=== PATIENT | male | born 1950 | race Caucasian/White ===

== ENCOUNTER 2017-04-10 21:59 | Inpatient (IN) | payer BC ==
[2017-04-10 22:30] LABS: BASO % 1.1 % (0-2.0); EOS % 2.2 % (0-4.5); HEMATOCRIT 35.5 % (35.4-49); HEMOGLOBIN 11.3 GM/dL (11.7-16.9); LYMPH % 27.1 % (8-40); MCHC 31.7 g/dl (32.0-35.9); MEAN CELL VOLUME 60.2 fl (80-96); MEAN PLT VOLUME 8.4 fl (7.5-11.1); MONO % 7.5 % (3.8-10.2); NEUT % 62.1 % (42.8-82.8); PLATELET COUNT 283 K/MM3 (134-434); RDW 15.7 % (11.9-15.9); WHITE BLOOD COUNT 6.2 K/mm3 (4.0-10.0)
[2017-04-10 22:31] LABS: ADD RBC MORPHOLOGY YES; MCH 19.1 pg (25.7-33.7)
--- NOTE | 2017-04-10 22:32 | PDOC ---
Attending Attestation - Resident Resident Name: Dimitri Adams - ED Attending Attestation I have performed the following: I have examined & evaluated the patient, The case was reviewed & discussed with the resident, I agree w/resident's findings & plan, Exceptions are as noted - HPI HPI: 04/10/17 22:40 right side facial droop and right upper and lower extremity weakness. Symptoms started at 7:30 pm today. - Physicial Exam PE: 04/10/17 22:42 Physical Exam General Appearance: Yes: Appropriately Dressed. No: Apparent Distress, Intoxicated HEENT: positive: EOMI, MUSA, Normal ENT Inspection, Normal Voice, TMs Normal, Pharynx Normal. negative: Pale Conjunctivae, Photophobia, Scleral Icterus (R), Scleral Icterus (L) Neck: positive: Trachea midline, Normal Thyroid, Supple. negative: Tender, Rigid, Carotid bruit, Stridor, Lymphadenopathy (R), Lymphadenopathy (L), Thyromegaly Respiratory/Chest: positive: Lungs Clear, Normal Breath Sounds. negative: Chest Tender, Respiratory Distress, Accessory Muscle Use, Labored Respiration, RES, Crackles, Rales, Rhonchi, Stridor, Wheezing, Dullness Cardiovascular: positive: Regular Rhythm, Regular Rate, S1, S2. negative: Edema , JVD, Murmur, Bradycardia, Tachycardia Vascular Pulses: Dorsalis-Pedis (R): 2+, Doralis-Pedis (L): 2+ Gastrointestinal/Abdominal: positive: Normal Bowel Sounds, Flat, Soft. negative : Tender, Organomegaly, Pulsatile Mass, Increased Bowel Sounds, Decreased BS, Distended, Guarding, Rebound, Hernia, Hepatomegaly, Spleenomegaly Lymphatic: negative: Adenopathy, Tenderness Musculoskeletal: positive: Normal Inspection. negative: CVA Tenderness, Decreased Range of Motion Extremity: positive: Normal Capillary Refill, Normal Inspection, Normal Range of Motion, Pelvis Stable. negative: Tender, Pedal Edema, Swelling, Erythema Integumentary: positive: Normal Color, Dry, Warm. 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 negative: EOM Palsy, Sensory Deficit - Medical Decision Making 04/10/17 23:12 Pt stroke scale started at 11. Went down to 2, then return to 7. Pt started om TPA.
[2017-04-10 22:43] LABS: INR 1.06 (0.82-1.09)
[2017-04-10] MEDS ORDERED: ALTEPLASE 100MG 100 MG IVPB ONE (22:52)
[2017-04-10 22:53] LABS: ALBUMIN 3.7 g/dl (3.4-5.0); ANION GAP 10 (8-16); BLOOD UREA NITROGEN 22 mg/dL (7-18); CALCIUM 9.2 mg/dL (8.5-10.1); CHLORIDE 96 mmol/L (98-107); CHOLESTEROL 239 mg/dL (50-200); CO2 29 mmol/L (21-32); CREATININE 0.9 mg/dL (0.7-1.3); GLUCOSE,RANDOM 239 mg/dL (74-106); POTASSIUM 3.9 mmol/L (3.5-5.1); SGOT/AST 18 U/L (15-37); SGPT/ALT 40 U/L (12-78); SODIUM 135 mmol/L (136-145); TRIGLYCERIDES 338 mg/dL (35-160)
[2017-04-10 22:55] LABS: ALK PHOS 77 U/L (45-117); BILIRUBIN,TOTAL 0.5 mg/dL (0.2-1.0); HDL CHOLESTEROL 37 mg/dL (40-60); LDL CHOLESTEROL (ONLY SJRH) 148 mg/dL (5-100); TOT PROT 7.1 g/dl (6.4-8.2)
[2017-04-10 23:11] LABS: ANISOCYTOSIS 1+; OVALOCYTE 1+; PLATELET ESTIMATE ADEQUATE; TARGET CELLS 1+
[2017-04-10] MEDS ORDERED: ALTEPLASE 50 MG VIAL IVPB ONE (23:14)
[2017-04-10 23:27] LABS: URINE APPEARANCE CLEAR; URINE BILIRUBIN NEGATIVE (NEGATIVE); URINE BLOOD NEGATIVE (NEGATIVE); URINE COLOR LTYELLOW; URINE GLUCOSE (UA) 3+ (NEGATIVE); URINE KETONE TRACE (NEGATIVE); URINE LEUK ESTERASE NEGATIVE (NEGATIVE); URINE NITRITE NEGATIVE (NEGATIVE); URINE UROBILINOGEN NEGATIVE mg/dL (0.2-1.0)
[2017-04-10 23:35] LABS: URINE PROTEIN 1+ (NEGATIVE)
--- NOTE | 2017-04-10 23:35 | PDOC ---
History of Present Illness - General Chief Complaint: CVA/TIA Stated Complaint: STROKE Time Seen by Provider: 04/10/17 22:01 History Source: Patient Exam Limitations: No Limitations - History of Present Illness Initial Comments: 04/10/17 23:30 Patient is a 66M with history of HTN and DM here today complaining of right sided facial droop and right sided weakness. Last known well, per patient's , was 19:30 today. Patient denies history of ICH, GI bleed, neurosurgery, or other bleeding abnormality. Patient denies chest pain, shortness of breath. He endorses an associated headache that has been bothering him for the past several days. Denies taking any anticoagulation. Past History - Past Medical History Allergies/Adverse Reactions: Allergies Allergy/AdvReac Type Severity Reaction Status Date / Time No Known Allergies Allergy Verified 04/10/17 22:00 Home Medications: Ambulatory Orders Finasteride [Proscar] 5 mg PO DAILY 04/10/17 Glipizide [Glucotrol -] 10 mg PO BID 04/10/17 Losartan/Hydrochlorothiazide [Losartan-Hctz 100-12.5 mg Tab] 1 each PO DAILY 05/27 Metformin HCl [Metformin HCl ER] 1,000 mg PO BID 04/10/17 Tamsulosin HCl [Flomax -] 0.4 mg PO BID 04/10/17 COPD: No Diabetes: Yes (2) Disorders: Yes (enlarged prostate) HTN: Yes - Suicide/Smoking/Psychosocial Hx Smoking History: Current some day smoker Number of Cigarettes Smoked Daily: 5 Information on smoking cessation initiated: No Hx Alcohol Use: No Drug/Substance Use Hx: No Review of Systems - Review of Systems Comments:: 04/10/17 23:35 GENERAL/CONSTITUTIONAL: No fever or chills. HEAD, EYES, EARS, NOSE AND THROAT: No change in vision. No sore throat. CARDIOVASCULAR: No chest pain or shortness of breath RESPIRATORY: No cough, wheezing, or hemoptysis. GASTROINTESTINAL: No nausea, vomiting, diarrhea or constipation. GENITOURINARY: No dysuria, frequency, or change in urination. MUSCULOSKELETAL: No joint or muscle swelling or pain. No neck or back pain. SKIN: No rash NEUROLOGIC: Positive for headache. Negative for vertigo, loss of consciousness, or change in strength/sensation. HEMATOLOGIC/LYMPHATIC: No anemia, easy bleeding, or history of blood clots. ALLERGIC/IMMUNOLOGIC: No hives or skin allergy. *Physical Exam - Vital Signs Last Vital Signs Temp Pulse Resp BP Pulse Ox 98.7 F 81 19 133/103 100 04/10/17 22:58 04/10/17 22:25 04/10/17 22:58 04/10/17 22:58 04/10/17 22:58 - Physical Exam Comments: 04/10/17 23:36 GENERAL: Awake, alert, and fully oriented, facial droop HEAD: No signs of trauma, normocephalic, atraumatic EYES: PERRLA, EOMI, left gaze palsy, sclera anicteric, conjunctiva clear ENT: Auricles normal inspection, hearing grossly normal, nares patent, oropharynx clear without exudates. Moist mucosa LUNGS: No distress, speaks full sentences, clear to auscultation bilaterally HEART: Regular rate and rhythm, normal S1 and S2, no murmurs, rubs or gallops, peripheral pulses normal and equal bilaterally. EXTREMITIES: Normal inspection, Normal range of motion, no edema. No clubbing or cyanosis. NEUROLOGICAL: Right sided facial droop, left eye palsy, right arm weakness, right leg weakness, right leg numbness. Slurred speech, difficultly finding words. SKIN: Warm, Dry, normal turgor, no rashes or lesions noted. NIH Stroke Scale - Last Known Well Date/Time & Onset Date Last Known Well: 04/10/17 Time Last Known Well: 19:30 - Initial Evaluation Level of consciousness: Alert Ask patient the month and their age: Answers both correctly Ask patient to open & close eyes; make fist and let go: Obeys both correctly Best gaze (horizontal eye movement): Partial gaze palsy Visual field testing: No visual field loss Facial paresis (Show teeth/raise eyebrows/close eyes tight): Partial paralysis ( total or near paralysis of lower face) Motor Function: Left Arm: Normal Motor Function: Right Arm: No effort against gravity Motor Function: Left Leg: Normal (extends leg 30 degrees for 5 seconds without drift) Motor Function: Right Leg: Drift Limb Ataxia: Present in two limbs Sensory(Use pinprick test arms,legs,trunk,face/side to side): Normal Best language (Describe picture, name items, read sentences): Mild to moderate aphasia Dysarthria (read several words): Mild to moderate slurring of words Extinction and Inattention: No abnormality - Total Score NIH Stroke Scale Score: 11 tPA Exclusion Checklist 0-3hr - Thrombolytic Therapy Candidate Is the patient eligible for Thrombolytic Therapy?: Yes - Exclusion Criteria 0-3hr SBP greater than 185 or DBP greater than 110mmHg despite tx: No Recent IC/spinal surgery,head trauma or stroke w/in last 3mo: No Hx of previous IC hemorrhage, IC neoplasm, AVM or aneurysm: No Active internal bleeding: No Blding diathesis(low plt ct, inc PTT,INR>1.7 or use of NOAC): No Symptoms suggest subarachnoid hemorrhage: No CT demonstrates multilobar infarct(>1/3 cerebral hemiphere): No Arterial puncture at noncompressible site in previous 7 days: No Blood glucose concentration less than 50mg/dL (2.7mmol/L): No - Relative Exclusion Criteria 0-3h Life expectancy <1yr/severe co-morbid illness/[employer] on admit: No : No Patient/family refused: No Rapid improvement: No Stroke severity too mild: No Recent acute NH (w/in previous 3 months): No Seizure at onset with postictal residual neuro impairments: No Major surgery or serious trauma w/in previous 14 days: No Recent GI or hemorrhage (w/in previous 21 days): No tPA Exclusion checklist 3-4.5h - Thrombolytic Therapy Candidate Is patient eligible for thrombolytic therapy: Yes - Exclusion Criteria 3-4.5 hr SBP greater than 185 or DBP greater than 110mmHg despite tx: No Recent IC/spinal surgery,head trauma or stroke<3mos.: No Hx IC hemorrhage, IC neoplasm, AV malformation or aneurysm: No Active internal bleeding: No Blding diathesis(low plt ct, inc PTT,INR>1.7 or use of NOAC): No Symptoms suggest subarachnoid hemorrhage: No CT demonstrates multilobar infarct(>1/3 cerebral hemiphere): No Arterial puncture at noncompressible site in previous 7 days: No Blood glucose concentration less than 50mg/dL (2.7mmol/L): No - Relative Exclusion Criteria 3-4.5 hr Life expectancy <1 yr or severe co-morbid illness: No : No Patient/family refused: No Rapid improvement: No Stroke severity too mild: No Recent acute NH (w/in previous 3 months): No Seizure at onset with postictal residual neuro impairments: No Major surgery or serious trauma w/in previous 14 days: No Recent GI or hemorrhage (w/in previous 21 days): No - Add'l Relative Exclusion 3-4.5 hr Age > 80: No Hx of both diabetes AND prior ischemic stroke: No Taking an oral anticoagulant regardless of INR: No NIHSS >25: No Critical Care Time/MDM Note Total Critical Care Time: 30 Critical Care Statement: The care of this patient involved high complexity decision making to prevent further life threatening deterioration of the patient 's condition and/or to evaluate & treat vital organ system(s) failure or risk of failure. - Medical Decision Making Note: 04/10/17 23:41 Patient is a 66M with history of HTN, and DM here today with stroke. Last known well at 7:30pm. Initial rapid evaluation: A- protecting airway B- equal breath sounds C- equal pulses in upper extremity, IV established by EMS D- Right sided facial droop Patient taken to CT scan. My wet read showed no hemorrhage. Radiology read confirms. Taken to room 10. Second IV placed, labs drawn. Initial stroke scale completed as in note - 11. Aspirin given. Neurology consulted 22:32, call back at 22:35, patient's right arm and leg weakness rapidly improved. Dr Oliva consulted, advised of improvement. Recommended tPA if patient's symptoms had not resolved entirely due to risk of worsening of symptoms. Repeat stroke scale 7 (1 gaze palsy, 1 right arm drift, 1 right leg drift, 1 limb ataxia, 1 sensory numbness, 1 for best language, 1 for dysarthria). tPA ordered for 73mg to be given as 8.3mg bolus with the remaining dripped in over one hour. After administration of tPA, patient's right arm weakness returned. 04/10/17 23:54 Kun accepted admission, will place patient in ICU. 04/11/17 00:03 [facility] approved for ICU. Discharge Disposition - Diagnosis Cerebrovascular accident (CVA) - Discharge Dispostion Condition at time of disposition: Stable Admit: Yes - Referrals Referrals: Gordon Miner v [Primary Care Provider] - - Patient Instructions - Post Discharge Activity
[2017-04-10 23:51] LABS: EPI CELLS RARE /HPF (FEW); URINE MUCUS RARE
[2017-04-11] MEDS ORDERED: ATORVASTATIN CA 80 MG TABLET (FP) PO ONE ×2 (01:07)
[2017-04-11] MEDS ORDERED: ATORVASTATIN CA 80 MG TABLET (FP) ONE (01:20)
[2017-04-11 01:46] VITALS: BMI 28.9
--- NOTE | 2017-04-11 01:52 | HP ---
CHIEF COMPLAINT: right facial droop and right sided weakness PCP: Dr. Gordon Miner HISTORY OF PRESENT ILLNESS: This is a 66yM with a past medical history of HTN, DM, BPH who presented to the ED with a report of R facial droop and right sided weakness. Upon exam pt denies headache and is unsure of what happened. ER course was notable for: (1) CT head no bleed (2) TPA administered at 11pm Recent Travel: pt denies PAST MEDICAL HISTORY: HTN DM BPH PAST SURGICAL HISTORY: cystoscopy Social History: Smokin.5PPW Alcohol: pt denies Drugs: pt denies Family History: mother late 70s, metastatic BrCA, HTN father age 84, OR, first OR at 60 2 sisters with no known medical problems Allergies No Known Allergies Allergy (Verified 04/10/17 22:00) HOME MEDICATIONS: 3 Medication Instructions Recorded Finasteride [Proscar] 5 mg PO DAILY 04/10/17 Glipizide [Glucotrol -] 10 mg PO BID 04/10/17 Losartan/Hydrochlorothiazide 1 each PO DAILY 04/10/17 [Losartan-Hctz 100-12.5 mg Tab] Metformin HCl [Metformin HCl ER] 1,000 mg PO BID 04/10/17 Tamsulosin HCl [Flomax -] 0.4 mg PO BID 04/10/17 REVIEW OF SYSTEMS CONSTITUTIONAL: Absent: fever, chills, diaphoresis, generalized weakness, malaise, loss of appetite, weight change HEENT: Absent: rhinorrhea, nasal congestion, throat pain, throat swelling, difficulty swallowing, mouth swelling, ear pain, eye pain, visual changes CARDIOVASCULAR: Absent: chest pain, syncope, palpitations, irregular heart rate, lightheadedness , peripheral edema RESPIRATORY: Absent: cough, shortness of breath, dyspnea with exertion, orthopnea, wheezing, stridor, hemoptysis GASTROINTESTINAL: Absent: abdominal pain, abdominal distension, nausea, vomiting, diarrhea, constipation, melena, hematochezia GENITOURINARY: Absent: dysuria, frequency, urgency, hesitancy, hematuria, flank pain, genital pain MUSCULOSKELETAL: Absent: myalgia, arthralgia, joint swelling, back pain, neck pain SKIN: Absent: rash, itching, pallor HEMATOLOGIC/IMMUNOLOGIC: Absent: easy bleeding, easy bruising, lymphadenopathy, frequent infections ENDOCRINE: Absent: unexplained weight gain, unexplained weight loss, heat intolerance, cold intolerance NEUROLOGIC: Present: R sided weakness, facial droop, confusion Absent: headache, dizziness, unsteady gait, seizure, mental status changes, bladder or bowel incontinence PSYCHIATRIC: Absent: anxiety, depression, suicidal or homicidal ideation, hallucinations. PHYSICAL EXAMINATION Vital Signs - 24 hr 3 04/10/17 04/10/17 04/10/17 22:00 22:23 22:25 Temperature Pulse Rate 81 73 Pulse Rate [ 81 Apical] Respiratory 14 16 Rate Blood Pressure 177/99 Blood Pressure 173/103 [Right Arm] O2 Sat by Pulse 99 100 100 Oximetry (%) 3 04/10/17 04/10/17 04/10/17 22:58 23:30 00:00 Temperature 98.7 F Pulse Rate Pulse Rate [ 86 82 Apical] Respiratory 19 17 17 Rate Blood Pressure Blood Pressure 133/103 151/99 148/98 [Right Arm] O2 Sat by Pulse 100 100 98 Oximetry (%) 3 04/11/17 04/11/17 04/11/17 00:27 01:00 01:32 Temperature 97 F L Pulse Rate 84 Pulse Rate [ 74 74 Apical] Respiratory 12 16 16 Rate Blood Pressure 140/82 Blood Pressure 160/98 145/95 [Right Arm] O2 Sat by Pulse 98 97 97 Oximetry (%) GENERAL: Awake, alert, and oriented to person and hospital. States it is March 2017. Asking me what happened. in no acute distress. HEAD: Normal with no signs of trauma. EYES: Pupils equal, round and reactive to light, extraocular movements intact, sclera anicteric, conjunctiva clear. No lid lag. +visual field loss right side EARS, NOSE, THROAT: Ears normal, nares patent, oropharynx clear without exudates. Moist mucous membranes. NECK: Normal range of motion, supple without lymphadenopathy, JVD, or masses. LUNGS: Breath sounds equal, clear to auscultation bilaterally. No wheezes, and no crackles. No accessory muscle use. HEART: Regular rate and rhythm, normal S1 and S2 without rub or gallop. 2/6 murmur LSB 4th ICS ABDOMEN: Soft, nontender, not distended, normoactive bowel sounds, no guarding, no rebound, no masses. No hepatomegaly or splenomegaly. MUSCULOSKELETAL: Normal range of motion at all joints. No bony deformities or tenderness. No CVA tenderness. UPPER EXTREMITIES: 2+ pulses, warm, well-perfused. No cyanosis. No clubbing. No peripheral edema. LOWER EXTREMITIES: 2+ pulses, warm, well-perfused. No calf tenderness. No peripheral edema. NEUROLOGICAL: + mild right sided facial droop noted, speech clear, strength RUE 4/5, LUE 5/5, RLE 4/5, LLE 5/5, + drift on leg raise and arm raise on right , drifts down but not to the bed. Left side normal. no ataxia noted PSYCHIATRIC: Cooperative. Good eye contact. Appropriate mood and affect. SKIN: Warm, dry, normal turgor, no rashes or lesions noted, normal capillary refill. Laboratory Results - last 24 hr 3 04/10/17 04/10/17 04/10/17 22:05 22:10 22:10 WBC 6.2 RBC 5.90 H Hgb 11.3 L Hct 35.5 MCV 60.2 L MCH 19.1 L MCHC 31.7 L RDW 15.7 Plt Count 283 MPV 8.4 Neutrophils % 62.1 Lymphocytes % 27.1 Monocytes % 7.5 Eosinophils % 2.2 Basophils % 1.1 Hypochromia 1+ Platelet Estimate Adequate Platelet Comment Polychromasia 1+ Poikilocytosis 1+ Anisocytosis 1+ Microcytosis 2+ Target Cells 1+ Ovalocytes 1+ PT with INR 12.00 H INR 1.06 Sodium Potassium Chloride Carbon Dioxide Anion Gap BUN Creatinine Creat Clearance w eGFR POC Glucometer [id number] Random Glucose Calcium Total Bilirubin AST ALT Alkaline Phosphatase Creatine Kinase Creatine Kinase Index CK-MB (CK-2) Troponin I Total Protein Albumin Triglycerides Cholesterol Total LDL Cholesterol HDL Cholesterol Urine Color Urine Appearance Urine pH Ur Specific [place] Urine Protein Urine Glucose (UA) Urine Ketones Urine Blood Urine Nitrite Urine Bilirubin Urine Urobilinogen Urine WBC (Auto) Urine RBC (Auto) Ur Epithelial Cells Urine Mucus Blood Type Antibody Screen 3 04/10/17 04/10/17 04/10/17 22:10 22:10 22:12 WBC RBC Hgb Hct MCV MCH MCHC RDW Plt Count MPV Neutrophils % Lymphocytes % Monocytes % Eosinophils % Basophils % Hypochromia Platelet Estimate Platelet Comment Polychromasia Poikilocytosis Anisocytosis Microcytosis Target Cells Ovalocytes PT with INR INR Sodium 135 L Potassium 3.9 Chloride 96 L Carbon Dioxide 29 Anion Gap 10 BUN 22 H Creatinine 0.9 Creat Clearance w eGFR > 60 POC Glucometer Random Glucose 239 H Calcium 9.2 Total Bilirubin 0.5 AST 18 ALT 40 Alkaline Phosphatase 77 Creatine Kinase 232 Creatine Kinase Index 2.7 CK-MB (CK-2) 6.310 H Troponin I < 0.02 Total Protein 7.1 Albumin 3.7 Triglycerides 338 H Cholesterol 239 H Total LDL Cholesterol 148 H HDL Cholesterol 37 L Urine Color Urine Appearance Urine pH Ur Specific [place] Urine Protein Urine Glucose (UA) Urine Ketones Urine Blood Urine Nitrite Urine Bilirubin Urine Urobilinogen Negative Urine WBC (Auto) 1 Urine RBC (Auto) <1 Ur Epithelial Cells Urine Mucus Blood Type A POSITIVE A POSITIVE Antibody Screen Negative 3 Urine Color Ltyellow 04/10/17 23:15 Urine Appearance Clear 04/10/17 23:15 Urine pH 6.0 (5.0-8.0) 04/10/17 23:15 Ur Specific [place] 1.021 (1.001-1.035) 04/10/17 23:15 Urine Protein 1+ (NEGATIVE) H 04/10/17 23:15 Urine Glucose (UA) 3+ (NEGATIVE) H 04/10/17 23:15 Urine Ketones Trace (NEGATIVE) H 04/10/17 23:15 Urine Blood Negative (NEGATIVE) 04/10/17 23:15 Urine Nitrite Negative (NEGATIVE) 04/10/17 23:15 Urine Bilirubin Negative (NEGATIVE) 04/10/17 23:15 Ur Epithelial Cells Rare /HPF (FEW) 04/10/17 23:15 Urine Mucus Rare 04/10/17 23:15 ECG Radiology Reports Cranial CT without contrast Clinical information: evaluate for CVA No intracranial hemorrhage is seen. A small infarct is noted within the left frontal branham radiata which is probably chronic, less likely subacute. Moderate periventricular and subcortical microvascular ischemic gliosis is seen. There is no gross mass lesion. No extra-axial fluid collection is noted. Involutional changes are seen with minimal ventricular dilatation. Atherosclerotic calcifications are noted along the intracranial vertebral and internal carotid arteries. Impression: A small left frontal subcortical infarct is noted which is probably chronic, less likely subacute. Correlate clinically. Follow-up imaging as clinically indicated. Moderate periventricular and subcortical chronic microvascular ischemic changes are seen. Reported By: Jared Ayala MD 04/10/17 4297 CXR without obvious infiltrate or effusion, read pending ASSESSMENT/PLAN: 66yM with PMH HTN, DM, BPH presented to the ED with R sided facial droop and weakness. CVA-acute - s/p tPA - pt able to swallow water without difficulty, will start lipitor 80mg - neuro consult - start ASA 24h post TPA - neurochecks q1h x 24h - vitals q1h x 24h - PT and swallow eval HTN - control BP, cont home hyzaar DM - BGM AC/HS with Novolog ss, goal less than 140-180 BPH - cont home meds. DVT PPX - deferred 24h post tpa FEN - hold IVF unless not cleared by ST for liquids in am - BMP in am - NPO except meds until swallow eval Dispo: Pt currently requires ICU level of care given the complexity of his condition. Visit type - Emergency Visit Emergency Visit: Yes ED Registration Date: 04/10/17 Care time: The patient presented to the Emergency Department on the above date and was hospitalized for further evaluation of their emergent condition. - New Patient This patient is new to me today: Yes Date on this admission: 04/11/17 - Critical Care Critical Care patient: Yes Total Critical Care Time (in minutes): 45 Critical Care Statement: The care of this patient involved high complexity decision making to prevent further life threatening deterioration of the patient 's condition and/or to evaluate & treat vital organ system(s) failure or risk of failure.
[2017-04-11] MEDS ORDERED: INSULIN (NOVOLOG) ASPART 100 UNITS/ML 10ML VIAL SQ ONE (03:25)
--- NOTE | 2017-04-11 06:25 | CONSULT ---
Consult Consult Specialty:: PULM/CCM Referred by:: Dr. Anuradha Oleary Reason for Consultation:: CVA - History of Present Illness Chief Complaint: R Sided Lenin-Paresis History of Present Illness: Mr. Ramos is a 66 y/o man w/ HTN, DM, & BPH who presents to the ED O/N w/ sudden R sided facial droop & R hemiparesis c/w L MCA region. A/P ED, the pt endorses an assoc [employer] that has been bothering him for the past several days. NCHCT shows no bleed. Dr. Oliva consulted. Pt TPA'ed w/o any improvement. Pt sent to the ICU a/p Dr. Oliva. - History Source History Provided By: Patient, Medical Record Limitations to Obtaining History: Clinical Condition - Past Medical History DIRECTOR OF ACCOUNTS PAYABLE: Yes: CVA Cardio/Vascular: Yes: HTN Endocrine: Yes: Diabetes Mellitus - Past Surgical History Past Surgical History: Yes: None - Alcohol/Substance Use Hx Alcohol Use: No - Smoking History Smoking history: Current some day smoker Aproximately how many cigarettes per day: 5 Home Medications - Allergies Allergies/Adverse Reactions: Allergies Allergy/AdvReac Type Severity Reaction Status Date / Time No Known Allergies Allergy Verified 04/10/17 22:00 - Home Medications Home Medications: Ambulatory Orders Finasteride [Proscar] 5 mg PO DAILY 04/10/17 Glipizide [Glucotrol -] 10 mg PO BID 04/10/17 Losartan/Hydrochlorothiazide [Losartan-Hctz 100-12.5 mg Tab] 1 each PO DAILY 05/27 Metformin HCl [Metformin HCl ER] 1,000 mg PO BID 04/10/17 Tamsulosin HCl [Flomax -] 0.4 mg PO BID 04/10/17 Family Disease History - Family Disease History Family Disease History: Heart Disease: Father (father age 84, [place], first CO at 60), Mother (mother late 70s, metastatic BrCA, HTN), CA: Mother Review of Systems - Review of Systems Constitutional: reports: No Symptoms Eyes: reports: No Symptoms HENT: reports: No Symptoms Neck: reports: No Symptoms Cardiovascular: reports: No Symptoms Respiratory: reports: No Symptoms Gastrointestinal: reports: No Symptoms Genitourinary: reports: No Symptoms Breasts: reports: No Symptoms Reported Musculoskeletal: reports: No Symptoms Integumentary: reports: No Symptoms Neurological: reports: Headache Endocrine: reports: No Symptoms Hematology/Lymphatic: reports: No Symptoms Psychiatric: reports: No Symptoms Pain Intensity: 6 Physical Exam Vital Signs: Vital Signs Temperature 97.2 F L 04/11/17 02:00 Pulse Rate 96 H 04/11/17 05:00 Respiratory Rate 18 04/11/17 05:00 Blood Pressure 152/70 04/11/17 05:00 O2 Sat by Pulse Oximetry (%) 97 04/11/17 01:32 Constitutional: Yes: Well Nourished, No Distress Eyes: Yes: WNL, Conjunctiva Clear, EOM Intact HENT: Yes: WNL, Atraumatic, Normocephalic Neck: Yes: WNL, Supple, Trachea Midline Cardiovascular: Yes: WNL, Regular Rate and Rhythm Respiratory: Yes: WNL, Regular, CTA Bilaterally Gastrointestinal: Yes: WNL, Normal Bowel Sounds, Soft ...Rectal Exam: Yes: Deferred Renal/: Yes: WNL Breast(s): Yes: WNL Musculoskeletal: Yes: WNL Edema: No Peripheral Pulses WNL: Yes Neurological: Yes: Alert, Oriented, Other (R sided lenin-paresis.) ...Motor Strength: RUE, RLE Psychiatric: Yes: WNL, Alert, Oriented Labs: CBC, BMP 04/10/17 22:10 04/10/17 22:10 INR, PTT INR 1.06 (0.82-1.09) 04/10/17 22:10 Imaging - Results Chest X-ray: Image Reviewed (04/10: Clear (My Read).) Cat Scan: Report Reviewed ([facility] 2: Cranial CT without contrast Clinical information: evaluate for CVA No intracranial hemorrhage is seen. A small infarct is noted within the left frontal branham radiata which is probably chronic, less likely subacute. Moderate periventricular and subcortical microvascular ischemic gliosis is seen. There is no gross mass lesion. No extra- axial fluid collection is noted. Involutional changes are seen with minimal ventricular dilatation. Atherosclerotic calcifications are noted along the intracranial vertebral and internal carotid arteries. Impression: A small left frontal subcortical infarct is noted which is probably chronic, less likely subacute. Correlate clinically. Follow-up imaging as clinically indicated. Moderate periventricular and subcortical chronic microvascular ischemic changes are seen. Reported By: Jared Ayala MD 04/10/17 [id number]) EKG: Report Reviewed (04/10: RSR in the 70's w/o ect, normal axis, notice ST elevations in V1, V2, V3 QTc = 430ms (My Read).) Problem List - Problems (1) Cerebrovascular accident (CVA) Code(s): I63.9 - CEREBRAL INFARCTION, UNSPECIFIED Assessment/Plan ASSESS: This is a 66 y/o man w/ HTN, DM, & BPH admitted to the ICU A/p Dr. 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 PLAN : -A/p Dr. Oliva -NPO -HOB > 30 -Asp precautions -Start ASA @ 24Hrs s/p TPA -FSs -Novolog SS --> GOAL BGL: 140-180 -Repeat NCHCT -MRI/MRA Brain -Maintain a MAP of 80 -90 (cont home hyzaar) -S & S -SQH -SCDs -PPI DGL [facility] ICU PULM/CCM [id number]
--- NOTE | 2017-04-11 06:35 | HOSP ---
Subjective - Review of Symptoms Subjective: Called for Worsening weakness of RUE As per prior notes and conversation with [employer] GUARD Kun pt, had 4/5 MS in RUE after TPA Upon my exam pt. has 1/5 and is not able to raise or move the arm at att STAT CT HEAD Non-CON ordered Neuro to be notified Physical Examination Vital Signs: Vital Signs Temperature 97.2 F L 04/11/17 02:00 Pulse Rate 96 H 04/11/17 05:00 Respiratory Rate 18 04/11/17 05:00 Blood Pressure 152/70 04/11/17 05:00 O2 Sat by Pulse Oximetry (%) 97 04/11/17 01:32
[2017-04-11 06:42] LABS: BASO % 0.5 % (0-2.0); EOS % 0.1 % (0-4.5); HEMATOCRIT 36.1 % (35.4-49); HEMOGLOBIN 11.6 GM/dL (11.7-16.9); LYMPH % 10.2 % (8-40); MCHC 32.1 g/dl (32.0-35.9); MEAN CELL VOLUME 60.7 fl (80-96); MEAN PLT VOLUME 9.1 fl (7.5-11.1); NEUT % 86.2 % (42.8-82.8); PLATELET COUNT 315 K/MM3 (134-434); RBC 5.95 M/mm3 (4.00-5.60)
[2017-04-11 06:53] LABS: MCH 19.5 pg (25.7-33.7)
[2017-04-11] MEDS ORDERED: INSULIN SLIDING SCALE (NOVOLOG) 1 VIAL SQ SCH ×2 (07:00→22:00)
[2017-04-11 07:14] LABS: ALBUMIN 3.7 g/dl (3.4-5.0); ALK PHOS 82 U/L (45-117); ANION GAP 8 (8-16); BILIRUBIN,TOTAL 0.5 mg/dL (0.2-1.0); BLOOD UREA NITROGEN 25 mg/dL (7-18); CHLORIDE 99 mmol/L (98-107); CO2 28 mmol/L (21-32); CREATININE 0.9 mg/dL (0.7-1.3); GLUCOSE,RANDOM 254 mg/dL (74-106); MAGNESIUM 1.8 mg/dL (1.8-2.4); PHOSPHOROUS 3.4 mg/dL (2.5-4.9); POTASSIUM 4.2 mmol/L (3.5-5.1); SGOT/AST 13 U/L (15-37); SGPT/ALT 39 U/L (12-78); SODIUM 135 mmol/L (136-145); TOT PROT 7.3 g/dl (6.4-8.2)
--- NOTE | 2017-04-11 08:05 | DS ---
Physical Examination Vital Signs: Vital Signs Temperature 98.7 F 04/11/17 06:00 Pulse Rate 84 04/11/17 07:00 Respiratory Rate 20 04/11/17 07:00 Blood Pressure 164/84 04/11/17 07:00 O2 Sat by Pulse Oximetry (%) 100 04/11/17 07:26 Findings/Remarks: Physical Exam: General: NAD, A&Ox3 Lungs: CTA bilaterally anteriorly Heart: RRR, S1S2. No murmurs Abd: Soft, non-tender, non-distended. Normoactive bowel sounds Neuro: Right mouth droop. Unable to lift right arm and right leg off the bed. No right hand grasp. Complete loss of sensation in right arm and right leg. Mild dysarthria noted. Right ataxia Labs: CBC, BMP 04/11/17 05:05 04/11/17 05:05 Discharge Summary Reason For Visit: CEREBRAL VASCULAR ACCIDENT (CVA) Current Active Problems Cerebrovascular accident (CVA) (Acute) Hospital Course: This is a 66 year old male with PMHx of HTN, DM, BPH who presented to the ED with right facial droop and right sided weakness that began at 7:30pm yesterday evening. Tpa administered, patient transferred to the ICU. Right arm weakness returned after administration of TPA. Worsening RUE weakness noted by overnight staff around 0630. 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 Oliva of the CT head findings, recommending transfer to [facility] for thrombectomy 0723: Called [facility]. Code stroke initiated. Spoke to Dr. Hidalgo who accepted the patient for immediate transfer for neuro intervention. Provided all pertinent information to Dr. Hidalgo at that time including physical exam and CT results. 0730: Informed the patient of the transfer, he is accepting. RN to call to inform of transfer 0736: Received call from [facility] that [facility] will be picking the patient up in less than 20 minutes 0830: Patient picked up by [facility] Condition: Stable - Instructions Referrals: Gordon Miner v [Primary Care Provider] - - Home Medications Comprehensive Discharge Medication List: Ambulatory Orders Finasteride [Proscar] 5 mg PO DAILY 04/10/17 Glipizide [Glucotrol -] 10 mg PO BID 04/10/17 Losartan/Hydrochlorothiazide [Losartan-Hctz 100-12.5 mg Tab] 1 each PO DAILY 05/27 Metformin HCl [Metformin HCl ER] 1,000 mg PO BID 04/10/17 Tamsulosin HCl [Flomax -] 0.4 mg PO BID 04/10/17 This patient is new to me today: Yes Date on this admission: 04/11/17 Emergency Visit: Yes ED Registration Date: 04/11/17 Care time: The patient presented to the Emergency Department on the above date and was hospitalized for further evaluation of their emergent condition. Critical Care patient: Yes Total Critical Care Time (in minutes): 35 Critical Care Statement: The care of this patient involved high complexity decision making to prevent further life threatening deterioration of the patient 's condition and/or to evaluate & treat vital organ system(s) failure or risk of failure. - Discharge Referral Referred to [facility] No
[2017-04-11] MEDS ORDERED: TAMSULOSIN HCL 0.4 MG CAP.ER.24H (FP) PO SCH (08:30)
[2017-04-11 08:34] VITALS: BP 152/76; PULSE 82; TEMP 98
[2017-04-11] MEDS ORDERED: HYDROCHLOROTHIAZIDE 12.5 MG CAPSULE (FP) PO SCH (10:00)
[2017-04-11] MEDS ORDERED: LOSARTAN POTASSIUM 50 MG TABLET (FP) PO SCH (10:00)
[2017-04-11] MEDS ORDERED: FINASTERIDE 5 MG TABLET (FP) PO SCH (10:00)
[2017-04-11] MEDS ORDERED: PATIENT'S OWN MEDICATION (NON-FORMULARY) (Losartan/Hydrochlorothiazide [Losartan-Hctz 100- PO SCH (10:00)
[2017-04-11] MEDS ORDERED: MUPIROCIN 2% TOPICAL OINTMENT FOR DECOLONIZATION NS SCH (10:00)
[2017-04-11] MEDS ORDERED: ATORVASTATIN CA 80 MG TABLET (FP) PO SCH (22:00)
[2017-04-11] MEDS ORDERED: CHLORHEXIDINE GLUCONATE 4% CLEANSER FOR DECOLONIZATION TP SCH (22:00)
== END 2017-04-11 08:30 | disposition short-term general hospital (02) | DRG 62 ==
LOC: JER 21:59 → JERBED 04-11 00:02 → JICU 04-11 01:25
PROVIDERS: ADMIT Internal Medicine; ATTEND Registered Nurse
DX: I63.9 Cerebral infarction, unspecified (principal); G81.91 Hemiplegia, unspecified affecting right dominant side; I10 Essential (primary) hypertension; E11.9 Type 2 diabetes mellitus without complications; N40.0 Benign prostatic hyperplasia without lower urinary tract symptoms
CPT/HCPCS: 36415; 70450-TC; 71045-TC; 80053; 81003; 81015; 82465; 82550; 82553; 83718; 83721; 83735; 84100; 84478; 84484; 85025; 85610; 86850; 86900; 86901; 99285-25; J2997